=== PATIENT | female | born 1995 | race Caucasian/White ===

== ENCOUNTER 2018-01-10 13:05 | Emergency (ER) | payer BC ==
[2018-01-10 13:39] VITALS: BP 105/74
--- NOTE | 2018-01-10 13:43 | UC ---
FLU HPI - HPI Summary HPI Summary: 22 y/o female presents to the urgent care c/o sore throat, dry cough, VALLES, fatigue nasal congestion w/ clear nasal discharge since Sunday01/07/2018. Pain w/ swallowing is 5/10. Pt has taken Ibuprofen PO 400mg PO to alleviate symptoms. Last dose taken last night. Pt is not sure if she had fever at home. She has had chills and body aches. Pt denies SOB, chest pain, abdominal pain, N/ V/D - History of Current Complaint Chief Complaint: UCRespiratory Stated Complaint: COUGH THROAT HEADACHE CONGESTION Time Seen by Provider: 01/10/18 13:35 Hx Obtained From: Patient Hx Last Menstrual Period: 01/09/18 Onset/Duration: Gradual Onset, Lasting Days - 4 days, Still Present, Worse Since - yesterday Severity Currently: Mild Severity Initially: Moderate Pain Intensity: 5 Pain Scale Used: 0-10 Numeric Associated Signs & Symptoms: Positive: Myalgia, Cough, Sore Throat, Nasal Congestion, Headache - Risk Factors Influenza Risk Factors: Negative - Allergy/Home Medications Allergies/Adverse Reactions: Allergies Allergy/AdvReac Type Severity Reaction Status Date / Time No Known Allergies Allergy Verified 01/10/18 13:32 Home Medications: Home Medications Lisdexamfetamine Dimesylate [Vyvanse] 50 mg QAM 01/10/18 [History Confirmed 11/25] Norgestrel-Ethinyl Estradiol [Cryselle-28 Tablet] 1 tab DAILY 01/10/18 [History Confirmed 01/10/18] Venlafaxine EXT RELEASE CAP* [Effexor Xr CAP*] 1 tab QPM 01/10/18 [History Confirmed 01/10/18] PMH/Surg Hx/FS Hx/Imm Hx Previously Healthy: Yes Psychological History: Depression Other Psychological History: ADHD - Surgical History Surgical History: Yes Surgery Procedure, Year, and Place: Ear tubes as child - Family History Known Family History: Positive: None - Pt denies FMHX - Social History Occupation: Employed Full-time Lives: With Family Alcohol Use: Occasionally Substance Use Type: Marijuana Substance Use Comment - Amount & Last Used: occasionally-last Sunday Smoking Status (MU): Current Some Day Smoker Type: eCigaredagoberto Review of Systems Constitutional: Chills, Fatigue, Other - body aches Skin: Negative Eyes: Negative ENT: Sore Throat, Nasal Discharge - clear, Sinus Congestion Respiratory: Cough - dry Cardiovascular: Negative Gastrointestinal: Negative Genitourinary: Negative Motor: Negative Neurovascular: Negative Musculoskeletal: Negative Neurological: Headache Psychological: Negative Is Patient Immunocompromised?: No All Other Systems Reviewed And Are Negative: Yes Physical Exam - Summary Physical Exam Summary: Vital Signs Reviewed: Yes General: well developed, well nourished female sitting in the examining table w/ o any apparent distress Eyes: Positive: Conjunctiva Clear - PERRLA, EOMI, fundi grossly normal ENT: Positive: Normal ENT inspection, Hearing grossly normal, Pharynx mild erythema, no exudate, Nasal congestion - edematous and erythematous nasal mucosa , Nasal drainage - yellowish drainage, TMs normal. Negative: Tonsillar swelling , Tonsillar exudate Neck: Positive: Supple, Nontender, No Lymphadenopathy Respiratory: no orthopnea or dyspnea. Able to speak in full sentences, no retractions or accessory muscle use, no tripod position, stridor, or head bobbing. CTA bilaterally, no wheezing, no rhonchi, no rales, no crackles. Cardiovascular: Positive: RRR, No Murmur, Pulses Normal, Brisk Capillary Refill Abdomen Description: Positive: Nontender, No Organomegaly, Soft. Negative: CVA Tenderness (R), CVA Tenderness (L) Bowel Sounds: Positive: Present Musculoskeletal Exam: Normal Musculoskeletal: Positive: Strength Intact, ROM Intact, No Edema Neurological Exam: Normal Psychological Exam: Normal Skin Exam: Normal Triage Information Reviewed: Yes Vital Signs: Initial Vital Signs Temp 98.2 F 01/10/18 13:34 Pulse 100 01/10/18 13:34 Resp 16 01/10/18 13:34 BP 105/74 01/10/18 13:34 Pulse Ox 99 01/10/18 13:34 Flu Course/Dx - Course Course Of Treatment: 22 y/o female presents to the urgent care c/o sore throat, dry cough, VALLES, fatigue nasal congestion w/ clear nasal discharge since Sunday. Pain w/ swallowing is 5/10. Pt has taken Ibuprofen PO 400mg PO to alleviate symptoms. Last dose taken last night. Pt is not sure if she had fever at home. She has had chills and body aches. Pt denies SOB, chest pain, abdominal pain, N/V/D. Hx obtained. Pt w/ an URI on examination. Pt w/ URI on examination. Rapid strep ordered: negative. Influenza A&B ordered: result: negative. Pt advised to take ibuprofen PO to alleviates symptoms. Advised on hand washing. Pt advised to rest, increase fluid intake, eat well and avoid strenuous exercise. If symptoms do not improve or worsen advised to return to the urgent care or f/u with her PCP for further evaluation and treatment. Pt understood and agreed with plan of care. - Differential Dx/Diagnosis Differential Diagnosis/HQI/PQRI: Bronchitis, Influenza, Upper Respiratory Infection, Other - pharyngitis Provider Diagnoses: 1- Upper respiratory infection Discharge - Sign-Out/Discharge Documenting (check all that apply): Discharge/Admit/Transfer - D/C home - Discharge Plan Condition: Stable Disposition: HOME Patient Education Materials: Upper Respiratory Infection (ED) Forms: *Work Release Referrals: [facility] [Outside] - 3 Days Additional Instructions: 1-Please take ibuprofen PO q6-8hrs prn as instructed after meals to alleviate pain and swelling. Increase fluid intake, eat well, rest and avoid strenuous exercise 2-If symptoms do not improve or worsen please return to the urgent care or f/u with your PCP for further evaluation and treatment. - Billing Disposition and Condition Condition: STABLE Disposition: HOME
== END 2018-01-10 14:41 | disposition home or self-care (01) ==
LOC: UCCORT 13:05
DX: J06.9 Acute upper respiratory infection, unspecified (principal); F32.9 Major depressive disorder, single episode, unspecified; F90.9 Attention-deficit hyperactivity disorder, unspecified type; F17.290 Nicotine dependence, other tobacco product, uncomplicated
CPT/HCPCS: 87502; 87651; 99201; G0463

== ENCOUNTER 2018-05-16 10:56 | Emergency (ER) | payer BC ==
[2018-05-16 11:14] VITALS: BP 103/69
--- NOTE | 2018-05-16 11:18 | UC ---
Skin Complaint HPI - HPI Summary HPI Summary: 22 year old with skin concern c/o red, raised areas on hands that she noticed on Sunday. Concerned for bed bugs. Of note this past weekend she did go camping and was exposed to potential mosquitoes and other flies. She did miss work today and needs a note for work. Denies any fevers or discharge from the lesions. Otherwise feels great [ End ] - History of Current Complaint Chief Complaint: UCSkin Time Seen by Provider: 05/16/18 11:17 Stated Complaint: BITES ON HAND Hx Obtained From: Patient Hx Last Menstrual Period: 04/18/18 Onset/Duration: Gradual Onset Pain Intensity: 0 Character: Pruritus, Raised Related History: Insect Bite/Sting - Allergy/Home Medications Allergies/Adverse Reactions: Allergies Allergy/AdvReac Type Severity Reaction Status Date / Time No Known Allergies Allergy Verified 05/16/18 11:09 Review of Systems Skin: Rash Is Patient Immunocompromised?: No All Other Systems Reviewed And Are Negative: Yes PMH/Surg Hx/FS Hx/Imm Hx Previously Healthy: Yes - Surgical History Surgical History: Yes Surgery Procedure, Year, and Place: Ear tubes as child - Family History Known Family History: Positive: None - Pt denies FMHX - Social History 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[employer], Student Lives: With Family Alcohol Use: Occasionally Substance Use Type: None Substance Use Comment - Amount & Last Used: occasionally-last Sunday Smoking Status (MU): Never Smoked Tobacco Type: eCigarettjessy Physical Exam Triage Information Reviewed: Yes Appearance: Well-Appearing, No Pain Distress, Well-Nourished Vital Signs: Initial Vital Signs Temp 98.4 F 05/16/18 11:10 Pulse 76 05/16/18 11:10 Resp 18 05/16/18 11:10 BP 103/69 05/16/18 11:10 Pulse Ox 99 05/16/18 11:10 Vital Signs Reviewed: Yes Eye Exam: Normal ENT Exam: Normal Dental Exam: Normal Neck exam: Normal Neck: Positive: 1 Respiratory Exam: Normal Cardiovascular Exam: Normal Musculoskeletal Exam: Normal Neurological Exam: Normal Psychological Exam: Normal Skin Exam: Normal Skin: Positive: rashes - Right lateral hand with one urticarial raised lesion left dorsal aspect of hand with group 3 urticarial raised red lesions. No discharge or streaking no abscess no induration no sensitivity to palpation. No sores on the palmar aspect between the digits. Course/Dx - Course Course Of Treatment: needs work note./ no acute concerns . RTO if any concerns. She declined meds wants to use OTC meds - Differential Diagnoses - Skin Complaint Differential Diagnoses: Contact Dermatitis, Local Allergic Reaction - Diagnoses Provider Diagnoses: insect bites on the hands Discharge - Sign-Out/Discharge Documenting (check all that apply): Patient Departure All imaging exams completed and their final reports reviewed: No Studies - Discharge Plan Condition: Good Disposition: HOME Patient Education Materials: Insect Bite or Sting (ED) Forms: *Work Release Referrals: Melania Montesinos DO [Primary Care Provider] - 4 Days (If needed) - Billing Disposition and Condition Condition: GOOD Disposition: Home
== END 2018-05-16 11:33 | disposition home or self-care (01) ==
LOC: UCCORT 10:56
DX: S60.562A Insect bite (nonvenomous) of left hand, initial encounter (principal); S60.561A Insect bite (nonvenomous) of right hand, initial encounter; W57.XXXA Bitten or stung by nonvenomous insect and other nonvenomous arthropods, initial encounter; Y93.9 Activity, unspecified; Y92.9 Unspecified place or not applicable; F17.290 Nicotine dependence, other tobacco product, uncomplicated
CPT/HCPCS: 99211; G0463

== ENCOUNTER 2018-11-15 17:50 | Emergency (ER) | payer BC ==
[2018-11-15 18:19] VITALS: BP 113/70
--- NOTE | 2018-11-15 18:27 | UC ---
Throat Pain/Nasal Madan HPI - HPI Summary HPI Summary: 23-year-old woman comes in with a chief complaint of upper respiratory tract infection symptoms for 4 days. She's had a fever. Runny nose sore throat. Mild ear pain. [id number] medications help decrease symptoms. No bodyaches. No shortness breath. - History of Current Complaint Chief Complaint: UCRespiratory Stated Complaint: COUGH/CONGESTION Time Seen by Provider: 11/15/18 18:18 Hx Last Menstrual Period: 11/12/18 Pain Intensity: 0 - Allergies/Home Medications Allergies/Adverse Reactions: Allergies Allergy/AdvReac Type Severity Reaction Status Date / Time No Known Allergies Allergy Verified 11/15/18 18:15 PMH/Surg Hx/FS Hx/Imm Hx Previously Healthy: Yes - Surgical History Surgical History: Yes Surgery Procedure, Year, and Place: Ear tubes as child - Family History Known Family History: Positive: None - Pt denies FMHX - Social History Alcohol Use: Weekly Substance Use Type: None Substance Use Comment - Amount & Last Used: occasionally-last Sunday Smoking Status (MU): Never Smoked Tobacco Type: eCigarettes Review of Systems All Other Systems Reviewed And Are Negative: Yes Constitutional: Positive: Fever Skin: Positive: Negative Eyes: Positive: Negative ENT: Positive: Sore Throat, Ear Ache, Nasal Discharge, Sinus Congestion Respiratory: Positive: Negative Cardiovascular: Positive: Negative Gastrointestinal: Positive: Negative Motor: Positive: Negative Neurovascular: Positive: Negative Musculoskeletal: Positive: Negative Neurological: Positive: Negative Psychological: Positive: Negative Is Patient Immunocompromised?: No Physical Exam Triage Information Reviewed: Yes Appearance: No Pain Distress, Well-Nourished, Ill-Appearing - MILD Vital Signs: Initial Vital Signs Temp 97.5 F 11/15/18 18:14 Pulse 88 11/15/18 18:14 Resp 16 11/15/18 18:14 BP 113/70 11/15/18 18:14 Pulse Ox 100 11/15/18 18:14 Vital Signs Reviewed: Yes Eye Exam: Normal Eyes: Positive: Conjunctiva Clear ENT: Positive: Pharyngeal erythema, Nasal congestion, Nasal drainage, TMs normal Neck exam: Normal Neck: Positive: Supple Respiratory: Positive: Lungs clear, Normal breath sounds, No respiratory distress Cardiovascular: Positive: RRR Musculoskeletal Exam: Normal Musculoskeletal: Positive: Strength Intact, ROM Intact Neurological Exam: Normal Neurological: Positive: Alert, Muscle Tone Normal Psychological Exam: Normal Psychological: Positive: Age Appropriate Behavior Skin Exam: Normal Throat Pain/Nasal Course/Dx - Course Course Of Treatment: DISCUSSED VIRAL VERSES BACTERIAL INFECTION AND THE ROLE OF ANTIBIOTICS. THE PATIENT WISHES TO BE ON ANTIBIOTICS AT THIS TIME. - Differential Dx/Diagnosis Provider Diagnosis: Upper respiratory infection Discharge - Sign-Out/Discharge Documenting (check all that apply): Patient Departure All imaging exams completed and their final reports reviewed: No Studies - Discharge Plan Condition: Stable Disposition: HOME Prescriptions: Amoxicillin PO (*) [Amoxicillin 875 MG (*)] 875 mg PO BID #20 tab Patient Education Materials: Upper Respiratory Infection (ED) Forms: *Work Release Referrals: Melania Montesinos DO [Primary Care Provider] - Additional Instructions: FOLLOW UP WITH YOUR DOCTOR IF NOT COMPLETELY IMPROVED. GET RECHECKED FOR ANY WORSENING OF YOUR CONDITION OR QUESTIONS OR CONCERNS. - Billing Disposition and Condition Condition: STABLE Disposition: Home
== END 2018-11-15 18:34 | disposition home or self-care (01) ==
LOC: UCCORT 17:50
DX: J06.9 Acute upper respiratory infection, unspecified (principal)
CPT/HCPCS: 99212; G0463